=== PATIENT | male | born 1995 | race Caucasian/White ===

== ENCOUNTER 2020-05-23 02:20 | Emergency (ER) | payer OTHER ==
[~2020-05-23] VITALS: Ht 172.7 cm; Wt 80.7 kg
[2020-05-23 03:21] VITALS: BP 132/81
--- NOTE | 2020-05-23 03:23 | REPVR ---
PROCEDURE INFORMATION: Exam: XR Chest, 2 Views Exam date and time: 05/23/2020 3:09 AM Age: 25 years old Clinical indication: Chest pain; Type not specified TECHNIQUE: Imaging protocol: XR of the chest Views: 2 views. COMPARISON: No relevant prior studies available. FINDINGS: Lungs: Unremarkable. No consolidation. Pleural space: Unremarkable. No pleural effusion. No pneumothorax. Heart/Mediastinum: Unremarkable. No cardiomegaly. Bones/joints: Unremarkable. IMPRESSION: Negative chest. Electronically signed by: Neil Pacheco On 05/23/2020 03:23:19 AM
--- NOTE | 2020-05-23 20:48 | ECGEPIP ---
[facility] - ED Test Date: 2020-05-23 Pat Name: CHIOMA OSWALD Department: Room: - Gender: Male [employer]er: : [id number] Requested By: JOEL MEAD Order Number: [id number] Reading MD: Cecilia Palmer Measurements Intervals [place] Rate: 65 P: 57 GA: 135 QRS: 43 QRSD: 101 T: 14 QT: 417 QTc: 437 Interpretive Statements SINUS RHYTHM POSSIBLE LEFT ATRIAL ENLARGEMENT POSSIBLE RIGHT VENTRICULAR CONDUCTION DELAY NO PRIOR Electronically Signed on 05-23-2020 20:48:35 EDT by Cecilia Palmer
== END 2020-05-23 03:30 | disposition home or self-care (01) ==
LOC: M ED 02:20
DX: R07.9 Chest pain, unspecified (principal); R42 Dizziness and giddiness; R20.2 Paresthesia of skin; F17.290 Nicotine dependence, other tobacco product, uncomplicated